=== PATIENT | female | born 1975 | race Hispanic/Latino ===

== ENCOUNTER 2019-04-12 11:42 | Outpatient (CLI) | payer OTHER ==
--- NOTE | 2019-04-12 12:02 | RAD ---
RADIOGRAPH CHEST 2 VIEWS: DATE: 04/12/2019 HISTORY: 44-year-old female with dyspnea and cough FINDINGS: The lungs are clear. The cardiomediastinal silhouette and hilar shadows appear normal. There is no pl eural effusion or pneumothorax. No osseous abnormality is identified. IMPRESSION: Normal
== END 2019-04-12 11:43 | disposition home or self-care (01) ==
LOC: BICRAD 11:42
PROVIDERS: ATTEND Nurse Practitioner Family
DX: R06.02 Shortness of breath (principal); R05 Cough
CPT/HCPCS: 71046

== ENCOUNTER 2022-11-27 08:36 | Outpatient (CLI) | payer OTHER | END 2022-11-27 08:37 | disposition home or self-care (01) | LOC: BICMAMMO 08:36 | PROVIDERS: ATTEND Student in an Organized Health Care Education/Training Program | DX: Z12.31 Encounter for screening mammogram for malignant neoplasm of breast (principal) | CPT/HCPCS: 77063; 77067 ==

== ENCOUNTER 2023-01-08 14:21 | Inpatient (IN) | payer OTHER ==
[~2023-01-08 14:21] MED LIST: Iopamidol-370 76% 500 ML MDV (1 ML CHARGE) ONE
[2023-01-08 14:40] LABS: #Basophils 0.1 thou/uL (0.0-0.2); #Eosinphils 0.2 thou/uL (0.0-0.7); #Monocytes 0.5 thou/uL (0.11-0.59); #Neutrophils 5.2 thou/uL (1.40-6.50); %Basophils 0.6 % (0.0-1.0); %Eosinophils 1.7 % (0.0-10.0); %Lymphocytes 38.2 % (21.0-51.0); %Monocytes 4.9 % (0.0-10.0); %Neutrophils 54.4 % (42.0-75.0); Hematocrit 41.4 % (36.0-47.0); Mean Corpuscular HGB CONC 33.8 g/dL (32.0-36.0); Mean Corpuscular Hemoglobin 32.2 pg (27.0-31.0); Mean Corpuscular Volume 95.2 fl (78.0-98.0); Mean Platelet Volume 10.3 fL (7.4-10.4); Platelet Count 269 10x3/uL (130-400); Red Blood Cell (RBC) Count 4.35 mill/uL (4.20-5.40); White Blood Cell (WBC) Count 9.5 10x3/uL (4.8-10.8)
[2023-01-08 15:07] LABS: ALT (SGPT) 13 U/L (8-55); AST (SGOT) 21 U/L (5-34); Albumin 4.8 g/dL (3.5-5.0); Alkaline Phosphatase 91 U/L (40-110); Anion Gap 13 mmol/L (10-20); BUN (Urea Nitrogen) 20 mg/dL (7.0-18.7); Bilirubin, Total 0.3 mg/dL (0.2-1.2); Calc. Creatinine Clearance 0 mL/min (70-130); Carbon Dioxide 29 mmol/L (22-29); Chloride 103 mmol/L (98-107); Estimated GFR 92; Globulin 3.3 g/dL (2.4-3.5); Glucose 95 mg/dL (70-105); Lipase 49 U/L (8-78); Potassium 4.2 mmol/L (3.5-5.1); Protein, Total 8.1 g/dL (6.0-8.3); Sodium 141 mmol/L (136-145)
[2023-01-08] MEDS ORDERED: Morphine 4 MG/ML VIAL ONE (16:17)
[2023-01-08] MEDS ORDERED: Ondansetron PF 4 MG/2 ML Vial ONE (16:17)
[2023-01-08 17:05] LABS: Bacteria/HPF None Seen HPF (None Seen); Bilirubin Negative (Negative); Blood, Urine Negative (Negative); CAUTI Indications for Culture Pelvic or flank pain; Clarity Clear (Clear); Glucose, Urine (Dipstick) Normal (Negative); Ketone, Urine Negative (Negative); Leukocyte Negative Leu/uL (Negative); Nitrite Negative (Negative); Protein, Urine (Dipstick) Negative (Neg-Trace); RBC/HPF 0-3 HPF (0-3); Specific Gravity, Urine 1.017 (1.002-1.036); Squamous Epithelial 0-3 HPF (0-3); Urobilinogen Normal mg/dL (Less than 2); WBC/HPF 0-3 HPF (0-3)
[2023-01-08 17:10] LABS: Pregnancy Test - Urine (BHCG) Negative (Negative); Pregu Control Background? CLEAR/WHITE (CLR/WHITE); Pregu Control Bar Appear? YES (CONTROL BAR); Specific Gravity 1.017 (1.002-1.036); Urine Culture Reflex No No
[2023-01-08 17:15] LABS: Troponin I Less than 0.010 ng/mL (< 0.028)
[2023-01-08] MEDS ORDERED: Piperacillin/Tazobactam 4.5 GM VIAL ONE (19:35)
[2023-01-08] MEDS ORDERED: traMADol HCl 50 MG TAB PO PRN (19:38)
[2023-01-08] MEDS: Acetaminophen 325 MG TAB PO SCH (21:31)
[2023-01-08 22:59] VITALS: BMI 32.7
[2023-01-09] MEDS: Piperacillin/Tazobactam 3.375 GM in Sodium Chloride 0.9% 100 ML IVPB SCH ×4 (00:20→23:19)
[2023-01-09] MEDS: Acetaminophen 325 MG TAB PO SCH ×3 (01:47→13:21)
[2023-01-09] MEDS ORDERED: Piperacillin/Tazobactam 3.375 GM VIAL ONE (08:11)
[2023-01-09] MEDS ORDERED: Sodium Chloride 0.9% 100 ML ONE (08:11)
[2023-01-09] MEDS ORDERED: EPINEPHrine 1 MG/ML AMP ONE (08:45)
[2023-01-09] MEDS ORDERED: Bupivacaine 0.25% HCL 30 ML VIAL ONE (08:45)
[2023-01-09] MEDS ORDERED: fentaNYL PF 100 MCG/2 ML SYRINGE ONE (08:53)
[2023-01-09] MEDS ORDERED: fentaNYL 50 mcg/mL 1 mL Vial ONE ×2 (08:53→10:29)
[2023-01-09] MEDS ORDERED: SUGAMMADEX SODIUM 200 MG/2 ML VIAL ONE (08:53)
[2023-01-09] MEDS ORDERED: Ketorolac Tromethamine 30 MG/ML VIAL ONE (09:07)
[2023-01-09] MEDS ORDERED: Lidocaine 1% PF 5 ML VIAL ONE (09:07)
[2023-01-09] MEDS ORDERED: Ondansetron PF 4 MG/2 ML Vial ONE (09:07)
[2023-01-09] MEDS ORDERED: Succinylcholine 200 MG/10 ml SYRINGE FS ONE (09:07)
[2023-01-09] MEDS ORDERED: Rocuronium Bromide 10 MG/ML (10ML VIAL) ONE (09:07)
[2023-01-09] MEDS ORDERED: PROPOFOL 200 MG/20 ML VIAL ONE (09:07)
[2023-01-09] MEDS ORDERED: Ondansetron HCl/PF 4 MG/2 ML Vial IVP PRN (10:19)
[2023-01-09] MEDS ORDERED: Promethazine HCl 25 MG/ML VIAL IM PRN (10:19)
[2023-01-09] MEDS ORDERED: Ibuprofen 200 MG TAB PO PRN (10:37)
[2023-01-09] MEDS: Morphine 4 MG/ML VIAL SLOW IVP PRN (13:21)
[2023-01-09] MEDS: Acetaminophen 500 MG TAB PO SCH ×2 (17:00→23:19)
[2023-01-09] MEDS: Ibuprofen 200 MG TAB PO SCH ×2 (17:00→20:27)
[2023-01-09] MEDS: traMADol HCl 50 MG TAB PO SCH ×2 (17:00→23:19)
[2023-01-10] MEDS: Ibuprofen 200 MG TAB PO SCH ×5 (01:48→12:15)
[2023-01-10] MEDS: traMADol HCl 50 MG TAB PO SCH ×2 (05:12→12:16)
[2023-01-10] MEDS: Acetaminophen 500 MG TAB PO SCH ×2 (05:12→12:16)
[2023-01-10 07:36] VITALS: TEMP 98.3
[2023-01-10] MEDS: Piperacillin/Tazobactam 3.375 GM in Sodium Chloride 0.9% 100 ML IVPB SCH (08:52)
[2023-01-10] MEDS: Morphine 4 MG/ML VIAL SLOW IVP PRN (08:59)
[2023-01-10 12:10] VITALS: BP 102/66
[2023-01-10 12:18] LABS: Bacteria/HPF None Seen HPF (None Seen); Bilirubin Negative (Negative); Blood, Urine Negative (Negative); CAUTI Indications for Culture Acute Hematuria; Clarity Clear (Clear); Glucose, Urine (Dipstick) Normal (Negative); Ketone, Urine Negative (Negative); Leukocyte 500 Leu/uL (Negative); Nitrite Negative (Negative); Protein, Urine (Dipstick) Negative (Neg-Trace); RBC/HPF 0-3 HPF (0-3); Specific Gravity, Urine 1.027 (1.002-1.036); Squamous Epithelial 0-3 HPF (0-3); Urobilinogen Normal mg/dL (Less than 2); WBC/HPF 21-50 HPF (0-3)
[2023-01-10 12:20] LABS: Urine Culture Reflex Yes Yes
== END 2023-01-10 13:34 | disposition home or self-care (01) | DRG 399 ==
LOC: ERS 14:21 → T4-B 19:41 → OBSVTOIN 01-09 15:30
PROVIDERS: ADMIT Surgery; ATTEND Surgery
PROC: 0DTJ4ZZ Resection of Appendix, Percutaneous Endoscopic Approach (ICD-10-PCS; principal; 2023-01-09)
DX: K35.30 Acute appendicitis with localized peritonitis, without perforation or gangrene (principal); E66.01 Morbid (severe) obesity due to excess calories; I10 Essential (primary) hypertension; M06.9 Rheumatoid arthritis, unspecified; M19.90 Unspecified osteoarthritis, unspecified site; Z68.32 Body mass index [BMI] 32.0-32.9, adult; R31.9 Hematuria, unspecified
CPT/HCPCS: 36415; 74177; 76705; 80053; 81001; 81025; 83690; 84484; 85025; 87086; 88304; 93005; 96361; 96365; 96375; J0171; J1885; J2270; J2405; J2543; J2704; J3010; J3490; Q9967; S0020

== ENCOUNTER 2024-01-14 12:06 | Outpatient (CLI) | payer OTHER | END 2024-01-14 12:07 | disposition home or self-care (01) | LOC: BICMAMMO 12:06 | PROVIDERS: ATTEND Nurse Practitioner Family | DX: Z12.31 Encounter for screening mammogram for malignant neoplasm of breast (principal) | CPT/HCPCS: 77063; 77067 ==